=== PATIENT | male | born 1985 | race Caucasian/White ===

== ENCOUNTER → 2019-02-01 09:01 | Outpatient (CLI) | payer OTHER, SELFPAY ==
[2019-02-01 10:54] LABS: Cholesterol 165 mg/dL (140-199); HDL Cholesterol 39 mg/dL (40-60); LDL Cholesterol Calculated 108 mg/dL (<100); Triglycerides 89 mg/dL (35-150)
== END ==
PROVIDERS: PCP Family Medicine; Visit Provider Family Medicine
DX: G25.81 Restless legs syndrome (principal); G47.30 Sleep apnea, unspecified; I10 Essential (primary) hypertension
CPT/HCPCS: 36415; 80061

== ENCOUNTER → 2019-09-19 09:16 | Outpatient (CLI) | payer OTHER, SELFPAY ==
[2019-09-19 10:02] LABS: Add Manual Diff / Slide Review NO; Basophils Absolute Auto 0 /uL (0-100); Basophils Percent Auto 0.3 % (0-2); Eosinophils Absolute Auto 100 /uL (0-450); Eosinophils Percent Auto 2.4 % (2-4); Hemoglobin 16.5 g/dL (13.5-17.5); Lymphocytes Absolute Auto 2100 /uL (1100-4500); Lymphocytes Percent Auto 33.5 % (25-40); Mean Corpuscular HGB Conc 35.1 % (30-36); Mean Corpuscular Hemoglobin 33.4 PG (26-34); Monocytes Absolute Auto 400 /uL (0-900); Monocytes Percent Auto 7.1 % (3-14); Neutrophils Absolute Auto 3500 /uL (1500-7000); Neutrophils Percent Auto 56.7 % (50-75); Platelet Count 232 X10^3/uL (150-400); Red Blood Cell Count 4.95 X10^6/uL (4.5-5.9); Red Cell Distribution Width 12.8 % (11.6-14.8); White Blood Cell Count 6.3 X10^3/uL (4.5-11.0)
[2019-09-19 10:14] LABS: Alanine Aminotransferase 54 IU/L (<50); Albumin 4.5 g/dL (3.5-5.0); Albumin Globulin Ratio 1.3 (1.0-2.8); Alkaline Phosphatase 50 U/L (38-126); Aspartate Aminotransferase 39 IU/L (17-59); BUN Creatinine Ratio 11.8 (6-22); Blood Urea Nitrogen 9 mg/dL (9-20); Calcium 9.1 mg/dL (8.4-10.2); Carbon Dioxide 24 mmol/L (22-32); Chloride 106 mmol/L (98-107); Estimated Glomerular Filt Rate > 60.0 mL/min (>60); Globulin 3.4 g/dL (1.7-4.1); Glucose 99 mg/dL (70-100); HEMOLYSIS < 15 (0-50); Potassium 4.1 mmol/L (3.4-5.1); Sodium 138 mmol/L (137-145); Total Protein 7.9 g/dL (6.3-8.2)
[2019-09-19 11:06] LABS: Thyroid Stimulating Hormone 0.51 uIU/mL (0.47-4.68)
[2019-09-19 11:26] LABS: Appearance Urine UA CLEAR; Bilirubin Urine UA NEGATIVE (NEGATIVE); Color Urine UA YELLOW; Glucose Urine UA NEGATIVE (Negative); Ketones Urine UA NEGATIVE (NEGATIVE); Leukocyte Esterase Urine UA TRACE (NEGATIVE); Nitrite Urine UA NEGATIVE (Negative); Occult Blood Urine UA NEGATIVE (Negative); Protein Urine UA NEGATIVE (Negative); Specific Gravity Urine UA 1.015 (1.000-1.035); Urobilinogen Urine UA 0.2 E.U./dL (0.2)
[2019-09-19 12:06] LABS: Bacteria Urine Few (2-10); Culture Indicated Urine Specimen Cultured; Mucus Urine 4+ (Negative); RBC Urine None Seen (0-5/HPF); WBC Urine 1-5/HPF (0-5/HPF)
== END ==
PROVIDERS: PCP Family Medicine; Referring Provider Nurse Practitioner Family; Visit Provider Nurse Practitioner Family
DX: G25.81 Restless legs syndrome (principal); G47.30 Sleep apnea, unspecified; I10 Essential (primary) hypertension
CPT/HCPCS: 36415; 80053; 81003; 81015; 84443; 85025; 87086

== ENCOUNTER 2019-12-04 18:02 | Emergency (ER) | payer OTHER, SELFPAY ==
[2019-12-04 18:07] VITALS: BP 167/112; PULSE 88; RESP 18; TEMP 37.1; O2SAT 99
[2019-12-04] MEDS: LIDO 1%/SOD BICARB 8.4% (10ML) 10 ML SYRINGE INJ (18:40)
--- NOTE | 2019-12-04 18:40 | PC.NURSE ---
practioner at bedside performing i&d of cyst of left side of neck
--- NOTE | 2019-12-04 18:48 | PC.NURSE ---
dressing applied to i&d'ed absess on left side of neck.
--- NOTE | 2019-12-04 18:56 | ED_ITS ---
HPI - Skin/Abscess/Foreign Bdy <ALESHIA Talavera - Last Filed: 12/04/19 19:08> General Chief complaint: Skin/Abscess/Foreign Body Stated complaint: cyst on his neck Time Seen by Provider: 12/04/19 18:06 Source: patient Mode of arrival: Ambulatory Limitations: no limitations History of Present Illness HPI narrative: This is a 34 year male, nonsmoker, who presents to ED with a lesion on left side neck after he had shaved 3 days ago. The lesion on the neck has been increasing in size with pain and redness. Patient denies fever, chills, nausea or vomiting. Patient denies drainage. Patient reports he had another abscess strained in the past on left side cheek. He decided come into ED since the lesion is near the neck became concerned. Related Data Previous Rx's Medication Instructions Recorded pramipexole 0.25 mg tablet 0.25 mg PO QHS #90 tab 12/28/18 losartan 50 mg tablet 50 mg PO DAILY #90 tab 09/20/19 Allergies Allergy/AdvReac Type Severity Reaction Status Date / Time No Known Drug Allergies Allergy Verified 12/04/19 18:10 Review of Systems <ALESHIA Talavera - Last Filed: 12/04/19 19:08> Review of Systems Narrative: General: Denies fever, chills, fatigue, malaise, sweats. HEENT: Denies sinus pain, ear pain, sore throat, difficulty swallowing, dizziness. Respiratory: Denies dyspnea, cough, wheezing, hemoptysis, sputum. Cardiovascular: Denies chest pain, palpitations, orthopnea, edema. Gastrointestinal: Denies nausea, vomiting, abdominal pain, diarrhea, constipation, melena. Skin: See HPI Patient History <ALESHIA Talavera - Last Filed: 12/04/19 19:08> Family History Mother Cervical cancer Oral cancer Social History Smoking Status: Never smoker Smoking Status: Never smoker alcohol intake frequency: 0-2 drinks per day Substance Use Type: does not use Exam <ALESHIA Talavera - Last Filed: 12/04/19 19:08> Narrative Exam Narrative: General appearance: well developed, well nourished, in no acute distress. Head: normocephalic, atraumatic, no scalp lesions, non-tender. ENT: Hearing grossly intact. Airway patent. Neck/Thyroid: neck supple, full range of motion, no meningeal signs. No JVD, no lymphadenopathy. Skin: Approximate 2.5 cm nodule with moderate induration on left mcneill near neck with erythema. No drainage. Warm and dry and appropriate color for ethnicity. Heart: no clubbing, no cyanosis, no edema. Lungs: Breathing even and unlabored. No stridor. No accessory muscles used. Able to speak in full sentences. Chest: normal shape and expansion. Abdomen: non-obese, non-distended. Neurologic: alert and oriented. Cognitive exam, STORE LEAD and PNS grossly intact on informal exam. Psych: good eye contact, normal affect. Initial Vital Signs Initial Vital Signs: Vital Signs Temperature 98.7 F 12/04/19 18:07 Pulse Rate 88 12/04/19 18:07 Respiratory Rate 18 12/04/19 18:07 Blood Pressure 167/112 H 12/04/19 18:07 Pulse Oximetry 99 12/04/19 18:07 <Farhat Stein DO - Last Filed: 12/04/19 19:13> Initial Vital Signs Initial Vital Signs: Vital Signs Temperature 98.7 F 12/04/19 18:07 Pulse Rate 88 12/04/19 18:07 Respiratory Rate 18 12/04/19 18:07 Blood Pressure 167/112 H 12/04/19 18:07 Pulse Oximetry 99 12/04/19 18:07 Procedures <ALESHIA Talaevra - Last Filed: 12/04/19 19:08> Abscess I/D I&D #1: Site: neck (Under chin) Side (if applicable): left Local Anesthetic: lidocaine 1% and with bicarb Amount of anesthesia used (mL): 1.5 Technique: needle aspiration and incised with #11 blade Amount of fluid expressed (mL): 1 Irrigation: Yes Packing used?: none Scores <ALESHIA Talavera - Last Filed: 12/04/19 19:08> GCS [place] coma scale eye opening: Spontaneous Ricki coma scale verbal response: Orientated Ricki coma scale motor response: Obey commands Ricki coma scale total score: 15 qSOFA Altered Mental Status (GCS <15): No Respiratory rate greater than/equal to 22: No Systolic blood pressure less than or equal to 100: No qSOFA Total: 0 0-1 Not High Risk 1-3 High risk Course <ALESHIA Talavera - Last Filed: 12/04/19 19:08> Orders Ordered: ED Orders 12/04/19 18:33 Wound Culture and Gram Stain Stat Discontinued Medications Lidocaine/Sodium Bicarbonate (Buffered Lidocaine 10 Ml Syr) 10 ml INJ NOW ONE Stop: 12/04/19 18:12 Last Admin: 12/04/19 18:40 Dose: 10 ml Documented by: LARISSA Vital Signs Vital signs: Vital Signs - 8 hr 12/04/19 18:07 Temperature 98.7 F Pulse Rate 88 Respiratory Rate 18 Blood Pressure 167/112 H Pulse Oximetry 99 <Farhat Stein DO - Last Filed: 12/04/19 19:13> Orders Ordered: ED Orders 12/04/19 18:33 Wound Culture and Gram Stain Stat Discontinued Medications Lidocaine/Sodium Bicarbonate (Buffered Lidocaine 10 Ml Syr) 10 ml INJ NOW ONE Stop: 12/04/19 18:12 Last Admin: 12/04/19 18:40 Dose: 10 ml Documented by: LARISSA Vital Signs Vital signs: Vital Signs - 8 hr 12/04/19 18:07 Temperature 98.7 F Pulse Rate 88 Respiratory Rate 18 Blood Pressure 167/112 H Pulse Oximetry 99 MDM - Skin/Abscess/Foreign Bdy <ALESHIA Talavera - Last Filed: 12/04/19 19:08> Differential Diagnosis Differential diagnosis: Likely abscess of skin or subcutaneous tissue, cellulitis and other (Folliculitis) Medical Records Attestation: I reviewed the patient's medical records. [facility] Narrative Medical decision making narrative: This 34-year-old male who presents to ED with small abscess developed on left side chin near neck after shaving 3 days ago. Patient denies constitutional symptoms. Patient had another abscess on left side cheek in the past which required I and D in the past. Surrounding tissue does not appears to be red, warm or edematous or this appears to be having cellulitis at this time. No antibiotic medication has been prescribed at this time. Please see procedure note. Wound culture was obtained and sent out. Adivsed patient to keep the area clean and dry and use frequent warm pack on affected site and clean with soap and water and rinse out thoroughly after shower. Return precautions were discussed with patient and advised to clean the area well with soap and water before shave and to use clean razor each time. Bart sears verbalized understanding and agreement with the treatment plan. Discharge Plan Departure Patient Disposition: Home Clinical Impression: Folliculitis, Facial abscess Discharge Date/Time: 12/04/19 18:59 Instructions: DI for Incision and Drainage of a Skin Abscess Activity Restrictions/Additional Instructions: You have been diagnosed with [facial abscess treated with I and D likely from folliculitis.]. What to do: *Take your medications as directed. You can take [id number] Tylenol and or Motrin as needed for discomfort. Frequent warm pack on affected site. After shower please rinse well with clean water and soap. To prevent further early colitis, you can routinely clean with benzoyl peroxide washes before shaving. *Follow up with your primary care provider in 2-3 days, call for an appointment. Let them know you were seen in the ED and that we asked you to be seen in follow up. *Return to ED if you have any new, worsening, or concerning symptoms, such as [fever, increasing redness, warmth, pain, swelling; chest pain, breathing difficulty, unable to tolerate fluids, or any acute concerns]. Prescriptions: No Action pramipexole [Mirapex] 0.25 mg tablet 0.25 mg PO QHS Qty: 90 RF: 3 losartan 50 mg tablet 50 mg PO DAILY Qty: 90 RF: 1 Referrals: Ayah Abrams DO [Primary Care Provider] - <Farhat Stein DO - Last Filed: 12/04/19 19:13> Cosign ED Attending Zeyadature Attestation: I was immediately available in the department for consultation. This document ation has been reviewed and I agree with assessment and plan. Supervised by Farhat Stein DO
== END 2019-12-04 18:59 | disposition home or self-care (01) ==
PROVIDERS: Emergency Provider Nurse Practitioner Family; PCP Family Medicine
DX: L73.9 Follicular disorder, unspecified (principal); L02.01 Cutaneous abscess of face
CPT/HCPCS: 10060; 87070; 87075; 87077; 87186; 87205; 99283

== ENCOUNTER 2020-03-09 00:28 | Emergency (ER) | payer OTHER, SELFPAY ==
[2020-03-09 00:30] VITALS: BP 181/118; PULSE 95; RESP 18; O2SAT 99
[2020-03-09] MEDS: OXYCODONE/APAP 5/325 PREPACK 1 BOTTLE MISC (00:46)
[2020-03-09] MEDS: CYCLOBENZAPRINE 10 MG PREPACK 1 BOTTLE MISC (00:46)
--- NOTE | 2020-03-09 00:47 | PC.NURSE ---
Dr Yeung instructed pt to check BP in the morning and if it continues to be elevated to contact pcp.
[2020-03-09 00:48] VITALS: BP 171/118
--- NOTE | 2020-03-09 00:49 | ED.NECK ---
HPI - Neck Pain/Injury General Chief Complaint: Neck Pain/Injury Stated Complaint: neck pain Time Seen by Provider: 03/09/20 00:32 Mode of arrival: Ambulatory Limitations: no limitations History of Present Illness HPI Narrative: 34-year-old gentleman with a history of hypertension was playing with his children yesterday and suffered an acute strained his neck. He has pain the posterior strap muscles up to the occipital insertions bilaterally. There is no midline tenderness and no radicular findings or neurologic complaints. He has been using icy Hot as well as Aleve and Tylenol and at this point is having so much pain that he was unable to sleep and with trying to reposition his head the pain was severe enough that he developed severe nausea without any vomiting. He has not had any similar type injury Related Data Previous Rx's Medication Instructions Recorded pramipexole 0.25 mg tablet 0.25 mg PO QHS #90 tab 12/28/18 losartan 50 mg tablet 50 mg PO DAILY #90 tab 09/20/19 cyclobenzaprine 10 mg PO TID PRN #10 tab 03/09/20 oxycodone-acetaminophen 1 tab PO Q6H PRN #14 tab 03/09/20 Allergies Allergy/AdvReac Type Severity Reaction Status Date / Time No Known Drug Allergies Allergy Verified 12/04/19 18:10 Review of Systems Review of Systems Narrative: Pertinent positive and negative findings as per HPI Remainder of review of systems is otherwise unremarkable for Constitutional: Fevers, chills, weakness ENT: No sore throat, neck pain, ear pain CV: Chest pain, palpitations, dyspnea on exertion Respiratory: Cough, wheeze, dyspnea GI: Nausea, vomiting, diarrhea, : Dysuria, hematuria, flank pain MS: Muscle weakness, numbness, joint swelling or warmth Patient History Medical History HTN (hypertension) Family History Mother Cervical cancer Oral cancer Social History Smoking Status: Never smoker Smoking Status: Never smoker alcohol intake frequency: 0-2 drinks per day Substance Use Type: does not use Exam Narrative Exam Narrative: General: Alert appropriate in no acute distress HEENT: Pain and spasm bilaterally in posterior strap muscles without midline tenderness or trapezius muscle tenderness. No redness or warmth to the area. No nuchal rigidity. There are no radicular components with neck compression and rotation Respiratory: Able to speak in full sentences, no obvious respiratory distress Skin: No obvious rashes, warm and dry Neurologic: Grossly intact no obvious asymmetries or abnormalities, upper extremities are neurovascularly Psych, appropriate insight and affect, cooperative Initial Vital Signs Initial Vital Signs: Vital Signs Pulse Rate 95 H 03/09/20 00:30 Respiratory Rate 18 03/09/20 00:30 Blood Pressure 181/118 H 03/09/20 00:30 Pulse Oximetry 99 03/09/20 00:30 Course Orders Ordered: Discontinued Medications Cyclobenzaprine HCl (Cyclobenzaprine 10 Mg Prepack) 1 bottle MISC SEEINSTR ONE Stop: 03/09/20 00:43 Last Admin: 03/09/20 00:46 Dose: 1 bottle Documented by: SILAS Oxycodone/Acetaminophen (Oxycodone/Apap 5/325 Prepack) 1 bottle MISC SEEINSTR ONE Stop: 03/09/20 00:43 Last Admin: 03/09/20 00:46 Dose: 1 bottle Documented by: SILAS Vital Signs Vital signs: Vital Signs - 8 hr 03/09/20 00:30 03/09/20 00:48 Pulse Rate 95 H Respiratory Rate 18 Blood Pressure 181/118 H 171/118 H Pulse Oximetry 99 MDM - Neck Pain/Injury MDM Narrative Medical decision making narrative: At 24 hours. after mild injury with acute neck strain and moderate muscle spasm. Feels better with a soft collar in place. Will use nonsteroidals, muscle relaxers and a brief course of narcotics to help with the acute pain. There is no evidence of neurologic injury or acute cervical bony injury. Patient is safe for home discharge Discharge Plan Departure Patient Disposition: Home Clinical Impression: Strain of neck muscle Qualifiers: Encounter type: initial encounter Qualified Code(s): S16.1XXA - Strain of muscle, fascia and tendon at neck level, initial encounter HTN (hypertension) Qualifiers: Hypertension type: essential hypertension Qualified Code(s): I10 - Essential (primary) hypertension Instructions: DI for Neck Pain Activity Restrictions/Additional Instructions: Thank you for coming in tonight You definitely have strained your neck muscles but you have not done any permanent damage. Typically you are worse in the 1st 48 hours after the injury which means that tomorrow is going to be equally as painful for you. Continue to use Aleve for pain control. Alternating ice and heat can be helpful. Trying the new [id number] Voltaren nonsteroidal cream might be helpful and continuing with the icy Hot would be appropriate as well. When you get home this evening please take 1 of the cyclobenzaprine, muscle relaxer and 2 Percocet, narcotic pain medication, to help with the acute pain of this evening and hopefully allow yourself to get some sleep. Prescriptions have been electronically transmitted to [email or web address] in [place]. The soft neck collar that I have given you is purely for comfort. Please use it as long as it is helpful. Once becomes more annoying than helpful to have it in place you do not need it any longer. Your blood pressure was significantly elevated today. Please check your blood pressure over the next few days. If it continues to be elevated your primary care provider may want to increase your losartan. I suspect that the lack of sleep and acute pain is part of the problem today I hope you feel better Prescriptions: New cyclobenzaprine 10 mg tablet 10 mg PO TID PRN (Reason: muscle spasm) Qty: 10 RF: 0 oxycodone-acetaminophen 5-325 mg tablet 1 tab PO Q6H PRN (Reason: pain) Qty: 14 RF: 0 No Action pramipexole [Mirapex] 0.25 mg tablet 0.25 mg PO QHS Qty: 90 RF: 3 losartan 50 mg tablet 50 mg PO DAILY Qty: 90 RF: 1 Referrals: Tom Tinoco ARNP [Primary Care Provider] -
== END 2020-03-09 00:55 | disposition home or self-care (01) ==
PROVIDERS: Emergency Provider Emergency Medicine; PCP Registered Nurse
DX: S16.1XXA Strain of muscle, fascia and tendon at neck level, initial encounter (principal); I10 Essential (primary) hypertension
CPT/HCPCS: 99281; 99283

== ENCOUNTER → 2020-05-29 09:16 | Outpatient (CLI) | payer OTHER, SELFPAY ==
[2020-05-29 10:56] LABS: Alanine Aminotransferase 40 IU/L (<50); Albumin 4.3 g/dL (3.5-5.0); Albumin Globulin Ratio 1.3 (1.0-2.8); Alkaline Phosphatase 53 U/L (38-126); Aspartate Aminotransferase 33 IU/L (17-59); BUN Creatinine Ratio 15.1 (6-22); Bilirubin Total 0.8 mg/dL (0.2-1.3); Blood Urea Nitrogen 11 mg/dL (9-20); Carbon Dioxide 27 mmol/L (22-32); Chloride 105 mmol/L (98-107); Cholesterol 177 mg/dL (140-199); Estimated Glomerular Filt Rate > 60.0 mL/min (>60); Globulin 3.3 g/dL (1.7-4.1); Glucose 90 mg/dL (70-100); HDL Cholesterol 40 mg/dL (40-60); HEMOLYSIS < 15 (0-50); LDL Cholesterol Calculated 119 mg/dL (<100); Sodium 137 mmol/L (137-145); Total Protein 7.6 g/dL (6.3-8.2); Triglycerides 90 mg/dL (35-150)
== END ==
PROVIDERS: PCP Registered Nurse; Referring Provider Registered Nurse; Visit Provider Registered Nurse
DX: I10 Essential (primary) hypertension (principal); Z82.49 Family history of ischemic heart disease and other diseases of the circulatory system
CPT/HCPCS: 36415; 80053; 80061

== ENCOUNTER 2021-09-04 03:58 | Emergency (ER) | payer OTHER, SELFPAY ==
[2021-09-04 04:05] VITALS: BP 153/110; PULSE 76; RESP 18; TEMP 36.6; O2SAT 100
--- NOTE | 2021-09-04 04:05 | ED.DENTAL ---
HPI - Dental/Oral General Chief complaint: Dental/Oral Stated complaint: toothache right side Time Seen by Provider: 09/04/21 04:04 History of Present Illness HPI Narrative: 35-year-old male former smoker with history of high blood pressure presents with a chief complaints of dental pain that came on rather suddenly this morning. He has a few known ?problem teeth ?on the bottom right part of his jaw it thinks he may have cracked tooth recently. He has no fever or chills and denies any nausea or vomiting. He has had some right jaw swelling that he noticed this morning. He has no difficulty swallowing and no trouble with speech. He has had no nausea, vomiting or diarrhea Related Data Previous Rx's Medication Instructions Recorded losartan 50 mg tablet See Rx Instructions .ROUTE 07/03/21 .COMPLEX #180 tab amoxicillin 875 mg-potassium 1 tab PO Q12H #20 tab 09/04/21 clavulanate 125 mg tablet Allergies Allergy/AdvReac Type Severity Reaction Status Date / Time No Known Drug Allergies Allergy Verified 01/09/21 10:18 Review of Systems Review of Systems Narrative: GENERAL: Denies chills, fatigue, malaise, fever, sweats. HEENT: See HPI RESPIRATORY: Denies dyspnea, cough, wheezing, hemoptysis, sputum. CARDIOVASCULAR: Denies chest pain, palpitations, orthopnea, edema, GASTROINTESTINAL: Denies nausea, vomiting, abdominal pain, diarrhea, constipation, melena. : Denies dysuria, frequency, incontinence, hematuria, urinary retention. MUSCULOSKELETAL: denies weakness, joint pain, or bony pain SKIN: Denies rash, skin lesions, or other NEUROLOGIC: Denies weakness, headache, numbness, change in speech, confusion, seizures, incoordination. PSYCHIATRIC: No concerning psychosocial issues. 12 point review of systems is negative except for those stated above Patient History Medical History HTN (hypertension) Family History Mother Cervical cancer Oral cancer Social History Smoking Status: Former smoker Smoking Status: Former smoker alcohol intake frequency: 0-2 drinks per day Substance Use Type: does not use Exam Narrative Exam Narrative: GEN: AOx3 and in mild distress EYES: Pupils are equal, round, and reactive to light and accommodation. Extraoccular muscles are intact bilaterally. There is no subconjunctival hemorrhage or exudate. ENT: Minimal swelling in the right lower mandible with tenderness to palpation. No tongue, lip or throat swelling. Poor widespread did tissue in, no obvious intraoral abscess worthy of drainage CHEST: Lungs are clear to auscultation bilaterally and free of wheezes, rales, or rhonchi. Heart rate is regular rhythm, there are no murmurs, clicks, rubs, or gallops. There is no chest wall tenderness. ABD: Abdomen is soft and nontender. There is no guarding or rebound. Bowel sounds are normal in all 4 quadrants. There is no mass or organomegaly. EXT: Full painless ROM of all extremities with no loss of sensation or strength. SKIN: Warm, pink, and dry. No erythema or rash Initial Vital Signs Initial Vital Signs: Vital Signs Temperature 98 F 09/04/21 04:05 Pulse Rate 76 09/04/21 04:05 Respiratory Rate 18 09/04/21 04:05 Blood Pressure 153/110 H 09/04/21 04:05 Pulse Oximetry 100 09/04/21 04:05 Procedures Nerve Block Nerve Block 1: Time out performed: Yes Local Anesthetic: bupivacaine 0.25% and with epi Amount of anesthesia used (mL): 3 Side: right Intraoral Nerve Block: inferior alveolar Procedure Successful: Yes Patient Tolerated Procedure: Well Course Orders Ordered: Discontinued Medications Amoxicillin/Clavulanate Potassium (Amoxicillin/Clav 875/125 Mg) 1 tab PO NOW ONE Stop: 09/04/21 04:05 Last Admin: 09/04/21 04:14 Dose: 1 tab Documented by: Bupivacaine HCl/Epinephrine Bitart (Bupivacaine 0.5% W/ Epi (Pf) 30 Ml Vial) 5 ml SUBCUT NOW ONE Stop: 09/04/21 04:05 Last Admin: 09/04/21 04:14 Dose: 5 ml Documented by: Vital Signs Vital signs: Vital Signs - 8 hr 09/04/21 04:05 Temperature 98 F Pulse Rate 76 Respiratory Rate 18 Blood Pressure 153/110 H Pulse Oximetry 100 Discharge Plan Departure Patient Disposition: Home Clinical Impression: Abscess, dental, HTN (hypertension) Instructions: DI for Dental Pain Activity Restrictions/Additional Instructions: *You have been diagnosed with [dental pain, likely early abscess *What to do: *Please continue to take your regular medications as directed. [x ] New medication prescriptions sent to your pharmacy: [[facility] ] [ ] New medication written as a paper prescription [ ] No new medications given *Please follow up with your dentist in 2-3 days, call for an appointment. Let them know you were seen in the Emergency Department and that we ask that you be seen in follow up. *Return to Emergency Department if you should have any new, worsening or concerning symptoms, such as [fever greater than 101 F, shaking chills, worsening pain, persistent vomiting or other bothersome symptoms] Prescriptions: New amoxicillin-pot clavulanate 875-125 mg tablet 1 tab PO Q12H Qty: 20 0RF No Action losartan 50 mg tablet See Rx Instructions .ROUTE .COMPLEX Qty: 180 0RF Dose Instruction: TAKE ONE TABLET BY MOUTH TWICE DAILY FOR HYPERTENSION Rx Instructions: TAKE ONE TABLET BY MOUTH TWICE DAILY FOR HYPERTENSION Referrals: Tom Tinoco ARNP [Primary Care Provider] -
[2021-09-04] MEDS: AMOXICILLIN/CLAV 875/125 MG 1 TAB PO (04:14)
[2021-09-04] MEDS: BUPIVACAINE 0.5% W/ EPI (PF) 30 ML VIAL 5 ML SUBCUT (04:14)
== END 2021-09-04 04:23 | disposition home or self-care (01) ==
PROVIDERS: Emergency Provider Emergency Medicine; PCP Registered Nurse
DX: K04.7 Periapical abscess without sinus (principal); I10 Essential (primary) hypertension
CPT/HCPCS: 64450; 99283

== ENCOUNTER → 2022-02-19 07:43 | Outpatient (CLI) | payer OTHER, SELFPAY ==
[2022-02-19 09:28] LABS: Alanine Aminotransferase 85 IU/L (<50); Albumin 4.2 g/dL (3.5-5.0); Albumin Globulin Ratio 1.4 (1.0-2.8); Alkaline Phosphatase 61 U/L (38-126); Aspartate Aminotransferase 64 IU/L (17-59); BUN Creatinine Ratio 10.7 (6-22); Bilirubin Total 1.2 mg/dL (0.2-1.3); Blood Urea Nitrogen 8 mg/dL (9-20); Calcium 8.6 mg/dL (8.4-10.2); Carbon Dioxide 25 mmol/L (22-32); Chloride 102 mmol/L (98-107); Cholesterol 199 mg/dL (140-199); Estimated Glomerular Filt Rate > 60 mL/min (>60); Globulin 3.1 g/dL (1.7-4.1); Glucose 102 mg/dL (70-100); HDL Cholesterol 62 mg/dL (40-60); HEMOLYSIS < 15 (0-50); LDL Cholesterol Calculated 108 mg/dL (<100); Potassium 3.7 mmol/L (3.4-5.1); Sodium 137 mmol/L (137-145); Total Protein 7.3 g/dL (6.3-8.2); Triglycerides 147 mg/dL (35-150)
== END ==
PROVIDERS: PCP Family Medicine; Referring Provider Pediatrics; Visit Provider Pediatrics
DX: E78.5 Hyperlipidemia, unspecified (principal)
CPT/HCPCS: 36415; 80053; 80061

== ENCOUNTER → 2022-11-28 08:36 | Outpatient (CLI) | payer OTHER, SELFPAY ==
[2022-11-28 10:03] LABS: Add Manual Diff / Slide Review NO; Basophils Absolute Auto 0 /uL (0-100); Basophils Percent Auto 0.3 % (0-2); Eosinophils Absolute Auto 100 /uL (0-450); Eosinophils Percent Auto 1.8 % (2-4); Hematocrit 46.4 % (41-53); Hemoglobin 16.3 g/dL (13.5-17.5); Lymphocytes Absolute Auto 2500 /uL (1100-4500); Lymphocytes Percent Auto 36.5 % (25-40); Mean Corpuscular HGB Conc 35.2 % (30-36); Mean Corpuscular Hemoglobin 34.2 PG (26-34); Mean Corpuscular Volume 97.2 fL (80-100); Monocytes Absolute Auto 600 /uL (0-900); Monocytes Percent Auto 8.6 % (3-14); Neutrophils Absolute Auto 3600 /uL (1500-7000); Neutrophils Percent Auto 52.8 % (50-75); Platelet Count 232 X10^3/uL (150-400); Red Blood Cell Count 4.77 X10^6/uL (4.5-5.9); Red Cell Distribution Width 12.5 % (11.6-14.8); White Blood Cell Count 6.8 X10^3/uL (4.5-11.0)
[2022-11-28 10:10] LABS: Hemoglobin A1C% w Est Avg Glu 4.8 % (4.0-6.0)
[2022-11-28 10:23] LABS: Alanine Aminotransferase 58 IU/L (<50); Albumin 4.3 g/dL (3.5-5.0); Albumin Globulin Ratio 1.4 (1.0-2.8); Alkaline Phosphatase 65 U/L (38-126); Aspartate Aminotransferase 41 IU/L (17-59); BUN Creatinine Ratio 14.1 (6-22); Bilirubin Total 0.8 mg/dL (0.2-1.3); Blood Urea Nitrogen 11 mg/dL (9-20); Calcium 8.8 mg/dL (8.4-10.2); Carbon Dioxide 26 mmol/L (22-32); Chloride 103 mmol/L (98-107); Cholesterol 202 mg/dL (140-199); Estimated Glomerular Filt Rate > 60 mL/min (>60); Globulin 3.1 g/dL (1.7-4.1); Glucose 89 mg/dL (70-100); HDL Cholesterol 48 mg/dL (40-60); HEMOLYSIS < 15 (0-50); LDL Cholesterol Calculated 126 mg/dL (<100); Sodium 139 mmol/L (137-145); Total Protein 7.4 g/dL (6.3-8.2); Triglycerides 139 mg/dL (35-150)
[2022-11-28 10:56] LABS: Hepatitis B Surface Antigen NEGATIVE s/c (NEGATIVE)
[2022-11-28 11:14] LABS: Hep C Virus Ab w/Reflex Quant NEGATIVE s/c (NEGATIVE)
[2022-11-29 05:53] LABS: Hepatitis B Core AB w/Reflex Negative (Negative)
[2022-11-29 09:50] LABS: Hepatitis B Surf Ab Qualitativ Non Reactive (.)
== END ==
PROVIDERS: PCP Family Medicine; Referring Provider Family Medicine; Visit Provider Family Medicine
DX: R73.9 Hyperglycemia, unspecified (principal); R74.01 Elevation of levels of liver transaminase levels; E78.5 Hyperlipidemia, unspecified; I10 Essential (primary) hypertension
CPT/HCPCS: 36415; 80053; 80061; 83036; 85025; 86704; 86706; 86803; 87340

== ENCOUNTER → 2024-03-29 06:57 | Outpatient (CLI) | payer OTHER, SELFPAY ==
[2024-03-29 08:26] LABS: Alanine Aminotransferase 42 IU/L (<50); Albumin 4.4 g/dL (3.5-5.0); Albumin Globulin Ratio 1.6 (1.0-2.8); Alkaline Phosphatase 68 U/L (38-126); Aspartate Aminotransferase 38 IU/L (17-59); BUN Creatinine Ratio 14.8 (6-22); Blood Urea Nitrogen 12 mg/dL (9-20); Calcium 9.1 mg/dL (8.4-10.2); Carbon Dioxide 28 mmol/L (22-32); Chloride 105 mmol/L (98-107); Cholesterol 174 mg/dL (140-199); Estimated Glomerular Filt Rate > 60 mL/min (>60); Globulin 2.8 g/dL (1.7-4.1); Glucose 94 mg/dL (70-100); HDL Cholesterol 61 mg/dL (40-60); HEMOLYSIS < 15 (0-50); LDL Cholesterol Calculated 97 mg/dL (<100); Potassium 4.1 mmol/L (3.4-5.1); Sodium 137 mmol/L (137-145); Total Protein 7.2 g/dL (6.3-8.2); Triglycerides 78 mg/dL (35-150)
== END ==
PROVIDERS: PCP Family Medicine; Referring Provider Family Medicine; Visit Provider Family Medicine
DX: R74.01 Elevation of levels of liver transaminase levels (principal); E78.5 Hyperlipidemia, unspecified; J30.2 Other seasonal allergic rhinitis; I10 Essential (primary) hypertension; G47.30 Sleep apnea, unspecified; G25.81 Restless legs syndrome
CPT/HCPCS: 36415; 80053; 80061

== ENCOUNTER 2024-07-17 19:45 | Emergency (ER) | payer OTHER, SELFPAY ==
[2024-07-17 20:12] VITALS: BP 152/102; PULSE 105; RESP 16; TEMP 36.9; O2SAT 97
--- NOTE | 2024-07-17 20:20 | DI.RAD.S_ITS ---
PROCEDURE: XR FINGER LT MIN 2V INDICATIONS: Specifically having pain and swelling at IP joint of L thumb TECHNIQUE: AP hand, 2 views of the 1st finger(s) acquired. COMPARISON: None. FINDINGS: Bones: Cortical irregularity at the lateral aspect the distal 1st phalanx at the base. Soft tissues: No suspicious soft tissue calcifications. IMPRESSION: Cortical irregularity at the base of the distal 1st phalanx overall nonspecific. No priors are available for comparison. Small avulsion injury cannot be excluded. Dictated by: Liseth Grande M.D. on 07/17/2024 at 21:40 Approved by: Liseth Grande M.D. on 07/17/2024 at 21:41
--- NOTE | 2024-07-17 22:26 | ED.EXTPRO ---
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 His left thumb is slightly bent he is unable to completely straighten out or bend it completely fully. He does not recall exactly what happened and he has not had no previous injury to the left thumb before he is right-handed dominant. Other than what is stated 14 point review of system is negative Related Data Previous Rx's Medication Instructions Recorded losartan 50 mg tablet 50 mg PO BID #180 tabs 03/30/24 Allergies Allergy/AdvReac Type Severity Reaction Status Date / Time No Known Drug Allergies Allergy Verified 03/30/24 15:59 Review of Systems Review of Systems ROS Unobtainable: All systems reviewed & are unremarkable except as noted in HPI and below Patient History Medical History (Updated 07/17/24 @ 22:45 by Krish Calvo DO) Transaminitis Hyperlipidemia Hyperglycemia Family history of heart disease HTN (hypertension) Facial abscess Folliculitis Family History Mother Cervical cancer Oral cancer Social History alcohol intake: current (1-2 drinks every few days ) substance use type: does not use alcohol intake frequency: 0-2 drinks per day Exam Narrative Exam Narrative: GENERAL: [38] year old patient appears stated age. Well-developed patient, in mild distress. HEAD: Atraumatic. Normocephalic. EYES: Pupils equal round and reactive. Extraocular motions intact. No scleral icterus. No injection or drainage. EXTREMITIES: No edema or joint tenderness. L thumb PIP slight flexion unable to completly straight but able to make a thumbs up sign, able to touch pinky and able to make a fist, motor/sensory intact +2 rad pulse cap refill <2secs BACK: Nontender without deformity or crepitance. No flank tenderness. NEURO: AOx3. SKIN: No rash or erythema of visible areas Initial Vital Signs Initial Vital Signs: Vital Signs Temperature 98.4 F 07/17/24 20:12 Pulse Rate 105 H 07/17/24 20:12 Respiratory Rate 16 07/17/24 20:12 Blood Pressure 152/102 H 07/17/24 20:12 Pulse Oximetry 97 07/17/24 20:12 Oxygen Delivery Method Room Air 07/17/24 20:12 Course Orders Ordered: ED Orders 07/17/24 20:20 XR finger LT min 2V Stat Vital Signs Vital signs: Vital Signs - 8 hr 07/17/24 20:12 Temperature 98.4 F Pulse Rate 105 H Respiratory Rate 16 Blood Pressure 152/102 H Pulse Oximetry 97 Oxygen Delivery Method Room Air MDM - Extremity (Nontraumatic) Imaging Data Extremity x-ray #1: Radiologist's Impression: [address] [address] XRay Report Signed Patient: Jaylan Conway MR#: [id number] : 1985 Acct:[id number] Age/Sex: 38 / M Date of Service: 07/17/24 Loc: ED Accession Number: [id number] Procedure: XR finger LT min 2V Ordering Provider: Krish Calvo D.O. PROCEDURE: XR FINGER LT MIN 2V INDICATIONS: Specifically having pain and swelling at IP joint of L thumb TECHNIQUE: AP hand, 2 views of the 1st finger(s) acquired. COMPARISON: None. FINDINGS: Bones: Cortical irregularity at the lateral aspect the distal 1st phalanx at the base. Soft tissues: No suspicious soft tissue calcifications. IMPRESSION: Cortical irregularity at the base of the distal 1st phalanx overall nonspecific. No priors are available for comparison. Small avulsion injury cannot be excluded. Dictated by: Liseth Grande M.D. on 07/17/2024 at 21:40 Approved by: Liseth Grande M.D. on 07/17/2024 at 21: MDM Narrative Medical decision making narrative: Patient placed in a thumb spica x-ray reviewed differential diagnosis includes fracture,dislocation, sprain, tendon, ligament, rupture. Follow up with PCP in 1 week if no improvement will need orthopedic referral advised patient to take Tylenol or ibuprofen as needed for pain control. Discharge Plan Departure Patient Disposition: Home Clinical Impression: Pain of left thumb Instructions: DI for Ulnar Collateral Ligament Sprain of Thumb Activity Restrictions/Additional Instructions: Return with new or worsening symptoms please continue to wear that splint daily. Follow up with PCP in 1 week and to take Tylenol or ibuprofen as needed for pain control Prescriptions: No Action losartan 50 mg tablet 50 mg PO BID Qty: 180 3RF Referrals: Beata Doshi DO [Primary Care Provider] - Stand Alone Forms: Patient Portal/API/Survey
[2024-07-17 22:33] VITALS: BP 149/90; PULSE 96; RESP 18; O2SAT 99
[2024-07-17] MEDS: IBUPROFEN 400 MG TABLET 800 MG PO (22:37)
[2024-07-17] MEDS: ACETAMINOPHEN 325 MG TABLET 650 MG PO (22:38)
== END 2024-07-17 22:50 | disposition home or self-care (01) ==
PROVIDERS: Emergency Provider Family Medicine; PCP Family Medicine
DX: M79.645 Pain in left finger(s) (principal)
CPT/HCPCS: 29280; 73140; 99283

== ENCOUNTER 2024-12-29 20:16 | Emergency (ER) | payer OTHER, SELFPAY ==
[2024-12-29 20:21] VITALS: BP 137/104; PULSE 90; RESP 16; TEMP 36.4; O2SAT 98; BMI 23.6
== END 2024-12-29 22:24 | disposition left against medical advice (07) ==
PROVIDERS: Emergency Provider Emergency Medicine; PCP Family Medicine
CPT/HCPCS: 99281